=== PATIENT | male | born 1970 | race Caucasian/White ===

== ENCOUNTER → 2024-07-24 16:23 | Outpatient (REF) | payer OTHER, SELFPAY ==
[2024-07-24 17:14] LABS: Erythrocyte Sed Rate 14 mm/hour (0-20)
== END ==
LOC: REG 16:23
PROVIDERS: ATTENDING PHYSICIAN Student in an Organized Health Care Education/Training Program
DX: M25.561 Pain in right knee (principal)
CPT/HCPCS: 36415; 85652; 86140